=== PATIENT | female | born 1965 | race Hispanic/Latino ===

== ENCOUNTER 2021-11-16 23:05 | Emergency (ER) | payer BC ==
[~2021-11-16] VITALS: Ht 147.3 cm; Wt 59.9 kg
[2021-11-16 23:50] VITALS: BP 151/88
== END 2021-11-16 23:50 | disposition home or self-care (01) ==
LOC: FSED 23:23
DX: M54.50 Low back pain, unspecified (principal); Z88.0 Allergy status to penicillin; Z87.442 Personal history of urinary calculi
CPT/HCPCS: 81003; 99282